=== PATIENT | female | born 1990 | race Caucasian/White ===

== ENCOUNTER 2019-11-03 15:36 | Emergency (ER) | payer SELFPAY ==
[~2019-11-03] VITALS: Ht 170.2 cm; Wt 81.8 kg
[2019-11-03] MEDS ORDERED: ALBU8HFA IH (15:48)
[2019-11-03] MEDS ORDERED: BENZ-51 PO (15:48)
[2019-11-03 16:30] VITALS: BP 133/67
== END 2019-11-03 17:00 | disposition home or self-care (01) ==
LOC: EMS 15:38
DX: J40 Bronchitis, not specified as acute or chronic (principal); M06.9 Rheumatoid arthritis, unspecified; Z79.899 Other long term (current) drug therapy; Z91.040 Latex allergy status; Z88.8 Allergy status to other drugs, medicaments and biological substances